=== PATIENT | female | born 1990 | race Caucasian/White ===

== ENCOUNTER → 2023-02-28 | Emergency (ER) | payer OTHER ==
--- OUTSIDE RECORDS SUMMARY | 2023-02-28 16:15 | XMS REPORT | Continuity of Care Document ---
Author Name Unknown Address [address] [place] [address] [facility]connect Address [address] [place] [address] Care Team Providers Care Global Transportation Manager Name Role Phone BRODY FLEMING Primary Care Physician Unavaila ble JERILYN MENJIVAR Attending Clinician Unavailable Jerilyn Menjivar MD Attending Clinician Hosea Núñez Attending Clinician [phone] JERILYN MENJIVAR Admitting Clinician Unavailable Problems Condition Name Condition Details Condition Category Status Onset Date Resolution Date Last Treatment Date Treating Clinician Comments Source No known active problems No known active problems Disease [facility] Allergies, Adverse Reactions, Alerts Allergy Name Allergy Type Status Severity Reaction(s) Onset Date Inactive Date Treating Clinician Comments Source Citric Acid Propensi ty to adverse reaction s Active Swelling 2018-03 00:00: 00 [facility] CITRIC ACID DRUG INGREDI Active Swelling 2018-03 00:00: 00 [facility] Social History Social Habit Start Date Stop Date Quantity Comments Source Exposure to SARS-CoV-2 (event) 2022-05-21 00:00:00 2022-05-31 21:10:00 Not sure [facility] Sex Ass[birth year] At 1990 00:00:00 1990 00:[birth year]:00 [facility] Smoking Status Start Date Stop Date Source Tobacco smoking consumption unknown [facility] Medications Ordered Medication Name Filled Medication Name Start Date Stop Date Current Medication? Ordering Clinician Indication Dosage Frequency Signature (SIG) Comments Components Source HYDROcodone -acetaminop hen (NORCO) 10-325 mg tablet 1 tablet 06-01 05:30: 00 06-01 04:34 :00 No 1{tbl} 1 tablet, Oral, ONCE NOW, 1 dose, On Sat06/01/22 at 0030, Routine [facility] mupirocin 2 % ointment 05-31 00:00: 00 Yes [id number] Apply to area(s) 3 (three) times daily. [facility] traMADoL (ULTRAM) 50 mg tablet 05-31 00:00: 00 Yes [id number] 50mg Take 1 tablet by mouth every 6 (six) hours as needed for Pain (scale 7-10). Indication s: acute pain [facility] cefTRIAXone (ROCEPHIN) injection 500 mg 03-21 06:45: 00 03-21 06:03 :00 No 500mg 500 mg, Intramuscu lar, ONCE, 1 dose, 03/21/20 at 0045, RICKY
Re ason for Anti-Infec tive: Empiric Therapy for Suspected Infection< br>Empiric Therapy Site: Pelvic
Duration of therapy: 72 hours [facility] doxycycline hyclate 100 mg capsule 03-21 00:00: 00 03-29 05:59 :00 No [id number] 100mg Take 1 capsule by mouth 2 (two) times daily for 7 days. [facility] Vital Signs Vital Name Observation Time Observation Value Comments S amelia Systolic blood pressure 2022-06-01 04:38:13 142 mm[Hg] [facility] Diastolic blood pressure 2022-06-01 04:38:13 79 mm[Hg] [facility] Heart rate 2022-06-01 04:38:13 102 /min [facility] Body temperature 2022-06-01 04:38:13 36.56 Kasandra [facility] Respiratory rate 2022-06-01 04:38:13 16 /min [facility] Oxygen saturation in Arterial blood by Pulse oximetry 2022-06-01 04:38:13 98 /min [facility] Body height 2022-06-01 02:10:00 157.5 cm [facility] Body weight 2022-06-01 02:10:00 65.772 kg [facility] BMI 2022-06-01 02:10:00 26.52 kg/m2 [facility] Systolic blood pressure 2020-03-21 05:34:00 121 mm[Hg] [facility] Diastolic blood pressure 2020-03-21 05:34:00 86 mm[Hg] [facility] Heart rate 2020-03-21 05:34:00 97 /min [facility] Body temperature 2020-03-21 05:34:00 36.72 Kasandra [facility] Respiratory rate 2020-03-21 05:34:00 14 /min [facility] Body height 2020-03-21 05:34:00 167.6 cm [facility] Body weight 2020-03-21 05:34:00 74.844 kg [facility] BMI 2020-03-21 05:34:00 26.63 kg/m2 [facility] Oxygen saturation in Arterial blood by Pulse oximetry 2020-03-21 05:34:00 100 /min [facility] Procedures Procedure Date / Time Performed Performing Clinicia n Source CONSENT/REFUSAL FOR DIAGNOSIS AND TREATMENT 2022-06-01 02:02:22 Doctor Unassigned, [place] [facility] POCT TEST 2020-03-21 05:53:00 Hosea Mullins [facility] NOTICE OF PRIVACY PRACTICES 2020-03-21 05:24:56 Doctor Unassigned, [place] [facility] CONSENT/REFUSAL FOR DIAGNOSIS AND TREATMENT 2020-03-21 05:24:37 Doctor Unassigned, [place] [facility] Encounters Start Date/Time End Date/Time Encounter Type Admission Type Attending Clinicians Care Facility Care Department Encounter ID Source 2023-02-27 10:13:13 2023-02-27 10:13:13 Outpatient [facility] [id number] 2023-02-11 14:09:51 2023-02-11 14:09:51 Outpatient [facility] [id number] 2023-02-08 10:55:37 2023-02-08 10:55:37 Outpatient [facility] [id number] 2022-05-31 21:12:00 2022-05-31 23:42:00 Emergency X JERILYN MENJIVAR [facility] ERT [id number] [facility] 2022-05-31 21:12:00 2022-05-31 23:42:00 Emergency Ham Menjivarberenice Angulo [facility] [id number] [facility] 2020-03-20 23:38:00 2020-03-21 01:05:00 Emergency Hosea Mullins [facility] [id number] [facility] 2020-03-20 23:25:00 2020-03-20 23:25:00 Emergency X [facility] ERT [id number] [facility] Results Test Description Test Time Test Comments Results Result Co mments Source [facility]
--- NOTE | 2023-02-28 17:36 | RAD REPORT ---
EXAM DESCRIPTION: RAD - Foot Left 3 View - 02/28/2023 5:06 pm CLINICAL HISTORY: PAIN COMPARISON: No comparisons FINDINGS/IMPRESSION: No acute fracture. No malalignment. No significant focal degenerative changes.
--- NOTE | 2023-02-28 18:06 | ER ---
Nurse's Notes [facility] Name: Bhargavi Amato Age: 32 yrs Sex: Female : 1990 Arrival Date: 02/28/2023 Time: 16:09 Bed DIS3 Private MD: Diagnosis: Pain in left foot Presentation: 02/28 16:30 Chief complaint: Patient states: IV drug user and injects in her foot. Pt states that cm10 she has swelling and pain to her left foot. Coronavirus screen: Client denies travel out of the [place] in the last 14 days. Ebola Screen: Patient denies travel to an Ebola-affected area in the 21 days before illness onset. No symptoms or risks identified at this time. Initial Sepsis Screen: Does the patient meet any 2 criteria? No. Patient's initial sepsis screen is negative. Does the patient have a suspected source of infection? No. Patient's initial sepsis screen is negative. Risk Assessment: Do you want to hurt yourself or someone else? Patient reports no desire to harm self or others. Onset of symptoms was February 28, 2023. 16:30 Method Of Arrival: Ambulatory cm10 16:30 Acuity: ANGEL 4 cm10 Triage Assessment: 18:16 General: Appears in no apparent distress. comfortable, Behavior is calm, cooperative. cm10 Pain: Complains of pain in left foot. Neuro: No deficits noted. Level of Consciousness is awake, alert, obeys commands, Oriented to person, place, time, situation. Respiratory: No deficits noted. Airway is patent Respiratory effort is even, unlabored, Respiratory pattern is regular, symmetrical. Historical: - Allergies: 16:31 No Known Allergies; cm10 - PMHx: 16:31 IV drug use; cm10 - Immunization history:: Adult Immunizations up to date. - Social history:: Smoking status: Patient reports the use of cigarette tobacco products, smokes one-half pack cigarettes per day, Patient uses IV drugs, amphetamines. Screenin:16 [facility] ED Fall Risk Assessment (Adult) History of falling in the last 3 months, cm10 including since admission No falls in past 3 months (0 pts) Confusion or Disorientation No (0 pts) Intoxicated or Sedated No (0 pts) Impaired Gait No (0 pts) Mobility Assist Device Used No (0 pt) Altered Elimination No (0 pt). Abuse screen: Denies threats or abuse. Denies injuries from another. Nutritional screening: No deficits noted. Tuberculosis screening: No symptoms or risk factors identified. Vital Signs: 16:34 BP 138 / 106; Pulse 98; Resp 18; Temp 98.3(O); Pulse Ox 98% on R/A; Weight 72.57 kg; cm10 Height 5 ft. 2 in. ; Pain 5/10; 16:34 Body Mass Index 29.26 (72.57 kg, 157.48 cm) cm10 16:34 Pain Scale: Adult cm10 ED Course: 16:14 Patient arrived in ED. ae5 16:17 Hardy Jaicnto MD is Attending Physician. ec2 16:31 Triage completed. cm10 16:34 Arm band placed on Patient placed in waiting room. cm10 17:07 Foot Left 3 View XRAY In Process Unspecified. EDMS 18:16 Patient has correct armband on for positive identification. Provided Education on: ER cm10 process and procedures.. 18:17 No provider procedures requiring assistance completed. Patient did not have IV access cm10 during this emergency room visit. Administered Medications: No medications were administered Medication: 18:16 VIS not applicable for this client. cm10 Outcome: 18:05 Discharge ordered by . ec2 18:17 Discharged to home ambulatory, with friend, cm10 18:17 Condition: good 18:17 Discharge instructions given to patient, Instructed on discharge instructions, follow up and referral plans. medication usage, Demonstrated understanding of instructions, follow-up care, medications, Prescriptions given X 1, 18:18 Patient left the ED. cm10 Signatures: Dispatcher [employer] Tere Jackson, ROHAN RN cm10 Hardy Jacinto MD MD ec2 Dotty Hale ae5
--- NOTE | 2023-02-28 18:06 | EDPHYS ---
Physician Documentation [facility] Name: Bhargavi Amato Age: 32 yrs Sex: Female : 1990 Arrival Date: 02/28/2023 Time: 16:09 Bed DIS3 Private MD: ED Physician Hardy Jacinto HPI: 02/28 16:38 This 32 yrs old Female presents to ER via Ambulatory with complaints of Foot ec2 Pain, SWOLLEN FOOT. 16:38 Patient arrives today for evaluation of left foot pain. Patient reports that she ec2 injects drugs into her feet, states that she is having pain and discomfort. Was seen yesterday, started on antibiotic however she is unsure which. Patient reports no systemic symptoms, denies any fevers or chills, denies any nausea or vomiting. Reports that she is having pain with ambulation and movement which is her main reason of coming to the ED today.. Historical: - Allergies: 16:31 No Known Allergies; cm10 - PMHx: 16:31 IV drug use; cm10 - Immunization history:: Adult Immunizations up to date. - Social history:: Smoking status: Patient reports the use of cigarette tobacco products, smokes one-half pack cigarettes per day, Patient uses IV drugs, amphetamines. ROS: 16:38 Constitutional: as per hpi ec2 Exam: 16:38 Constitutional: GEN: NAD Head: atraumatic Eyes: EOMI Ears: External ears are ec2 normal. CV: regular rate LUNGS: no respiratory distress ABD: non-distended SKIN: Punctate lesion noted on the dorsal aspect of the base of the left great toe, no significant erythema, no warmth. Does have intact DP and PT pulse, distally does have appropriate capillary refill. No significant crepitus appreciated, no deformity, no ecchymosis noted. MSK: no evidence of trauma NEURO: moves all extremities equally Vital Signs: 16:34 BP 138 / 106; Pulse 98; Resp 18; Temp 98.3(O); Pulse Ox 98% on R/A; Weight 72.57 kg; cm10 Height 5 ft. 2 in. ; Pain 5/10; 16:34 Body Mass Index 29.26 (72.57 kg, 157.48 cm) cm10 16:34 Pain Scale: Adult cm10 MDM: 16:38 Data reviewed: vital signs. ED course: Patient arrives today for evaluation of left ec2 foot pain. Examination remarkable for skin findings as noted above. Will obtain a radiograph of the left foot to evaluate for bony injury. Suspect cellulitis causing the patient's discomfort secondary to the patient's skin popping. Low suspicion for DVT, low suspicion for ischemia given strong pulses. Additionally low suspicion for septic emboli given the pinpoint lesion at the injection site.. 17:02 Patient medically screened. ec2 17:45 ED course: X-ray shows no evidence of fracture. Patient has been on a couple doses of ec2 antibiotics, will have her continue the antibiotics, will add on doxycycline for MRSA coverage given the mechanism.. Instructed her on appropriate hygiene as well as avoiding skin popping in the future. Return precautions given.. 02/28 16:38 Order name: Foot Left 3 View XRAY; Complete Time: 17:45 ec2 Administered Medications: No medications were administered Disposition Summary: 02/28/23 18:05 Discharge Ordered Notes: Location: Home ec2 Condition: Stable ec2 Diagnosis - Pain in left foot ec2 Followup: ec2 - With: Private Physician - When: - Reason: Recheck today's complaints Discharge Instructions: - Discharge Summary Sheet ec2 - Foot Pain ec2 Forms: - Medication Reconciliation Form ec2 - Thank You Letter ec2 - Antibiotic Education ec2 - Prescription Opioid Use ec2 - Patient Portal Instructions ec2 - Leadership Thank You Letter ec2 Prescriptions: - Doxycycline Hyclate 100 mg Oral Tablet - take 1 tablet ORAL route once daily; 10 tablet; Refills: 0, Product Selection ec2 Permitted Signatures: Dispatcher [employer] Tere Jackson RN RN cm10 Hardy Jacinto MD MD ec2 Corrections: (The following items were deleted from the chart) 18:08 17:45 ED course: X-ray shows no evidence of fracture. Patient has been on a couple ec2 doses of antibiotics, will have her continue the antibiotics as there is no overwhelming evidence of infection. Instructed her on appropriate hygiene as well as avoiding skin popping in the future. Return precautions given.. ec2
[2023-02-28 20:48] VITALS: BP 138/106; TEMP 98.3; O2SAT 98
== END ==
LOC: ER 16:09
DX: M79.672 Pain in left foot (principal); F17.210 Nicotine dependence, cigarettes, uncomplicated
CPT/HCPCS: 99283